=== PATIENT | female | born 1940 | race Caucasian/White ===

== ENCOUNTER → 2021-05-23 | Outpatient (CLI) | payer MEDICARE ==
--- NOTE | 2021-05-28 15:50 | RAD ---
Bilateral digital screening mammograms: Reason for examination: Routine screening. Comparison is made to previous mammograms dated 04/18/2020 and 12/01/2017. Interpretation was made with the benefit of CAD. Findings: Breast density: Category B. There are scattered areas of fibroglandular density.. There are no dominant masses, suspicious calcifications or architectural distortions. There is a smal l group of punctate calcifications 1:00 position of the right breast about 9 cm from the nipple which has not changed since 2018. Impression: No evidence of malignancy. . Assessment: BI-RADS Category 2. Benign findings. This patient's information has been entered into a reminder system for the patient to be notified wit h the results of her examination and a target date for the next mammogram. Electronically signed by: Destinee Ely MD (05/28/2021 3:48 PM) [id number]
== END ==
LOC: MAMMO 10:25
PROVIDERS: ATTEND Family Medicine
DX: Z12.31 Encounter for screening mammogram for malignant neoplasm of breast (principal); R92.1 Mammographic calcification found on diagnostic imaging of breast
CPT/HCPCS: 77067

== ENCOUNTER → 2021-07-10 | Outpatient (CLI) | payer MEDICARE ==
--- NOTE | 2021-07-10 12:24 | RAD ---
EXAM: AP pelvis, AP and lateral views of both hips DATE: 07/10/2021 9:23 AM INDICATION: Reason: BILATERAL HIP PAIN / Spl. Instructions: / History: . COMPARISON: No Prior FINDINGS: Mild bilateral hip joint space narrowing. Decreased bone mineral density. No acute fracture or disloc ation. Degenerative changes of lower lumbar spine. IMPRESSION: 1. No acute fracture or dislocation. 2. 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 Electronically signed by: Flo Nunez MD (07/10/2021 12:22 PM) [id number]
== END ==
LOC: RAD 09:18
PROVIDERS: ATTEND Orthopaedic Surgery
DX: M16.0 Bilateral primary osteoarthritis of hip (principal); M25.851 Other specified joint disorders, right hip; M25.852 Other specified joint disorders, left hip; M85.88 Other specified disorders of bone density and structure, other site; M47.816 Spondylosis without myelopathy or radiculopathy, lumbar region
CPT/HCPCS: 73521

== ENCOUNTER 2021-09-08 08:05 | Emergency (ER) | payer MEDICARE ==
[~2021-09-08] VITALS: Ht 165.1 cm; Wt 83.9 kg
--- NOTE | 2021-09-08 08:30 | PHYS DOC ---
General Adult EDM: Chief Complaint: MECHANICAL FALL HPI: HPI: 81-year-old female presents with left foot pain. The patient fell yesterday when she was walking around the bed. She has a left knee replacement. She states that when she came around the corner her left knee gave out and she fell to the ground. She landed on her left foot and ankle. She was able to get back up and get into her chair. This morning she noticed it was swollen and bruised and thought she should come in to make sure was not broken. She denies any other injuries or complaints at this time. Review of Systems: Review of Systems: Constitutional: Denies fever or chills Eyes: Denies change in visual acuity HENT: Denies nasal congestion or sore throat Respiratory: Denies cough or shortness of breath Cardiovascular: Denies chest pain or edema GI: Denies abdominal pain, nausea, vomiting, bloody stools or diarrhea : Denies dysuria Musculoskeletal: Left foot and ankle pain Integument: Denies rash Neurologic: Denies headache, focal weakness or sensory changes Endocrine: Denies polyuria or polydipsia Lymphatic: Denies swollen glands Psychiatric: Denies depression or anxiety Allergies: Allergies: Allergies Coded Allergies Type Severity Reaction Last Updated Verified No Known Drug Allergies 09/08/21 No Physical Exam: PE: Constitutional: Well developed, well nourished, no acute distress, non-toxic appearance. [] HENT: Normocephalic, atraumatic, bilateral external ears normal, oropharynx moist, no oral exudates, nose normal. [] Eyes: PERRLA, EOMI, conjunctiva normal, no discharge. [] Neck: Normal range of motion, no tenderness, supple, no stridor. [] Cardiovascular:Heart rate regular rhythm, no murmur [] Lungs & Thorax: Bilateral breath sounds clear to auscultation [] Abdomen: Bowel sounds normal, soft, no tenderness, no masses, no pulsatile masses. [] Skin: Warm, dry, no erythema, no rash. [] Back: No tenderness, no CVA tenderness. [] Extremities: Left lateral foot and ankle tender, ecchymosis, swollen. [] Neurologic: Alert and oriented X 3, normal motor function, normal sensory function, no focal deficits noted. [] Psychologic: Affect normal, judgement normal, mood normal. [] EKG: EKG: [] Radiology/Procedures: Radiology/Procedures: [] Impressions: EXAM: XR EXAM OF ANKLE_LEFT 3V, XR FOOT_LEFT 3 VIEWS 09/08/2021 8:33 AM CLINICAL INDICATION: Fall, swelling COMPARISON: None TECHNIQUE: 3 views of the left ankle and 3 views of the left foot. FINDINGS: Left foot: There is an acute, minimally displaced oblique fracture of the fifth metatarsal shaft. Alignment is normal. Joint spaces are maintained. No focal soft tissue abnormality. Left ankle: No acute fracture or malalignment in the ankle. The ankle mortise is symmetric and talar dome is intact. The fifth metatarsal fracture is redemonstrated. Soft tissues normal. IMPRESSION: 1. Acute minimally displaced fifth metatarsal shaft fracture. 2. No acute osseous abnormality of the left ankle. Electronically signed by: Rosi Curran MD (09/08/2021 8:53 AM) [id number] DICTATED AND SIGNED BY: ROSI CURRAN MD DATE: 09/08/21 0851 CC: MAXINE MALDONADO DO; BERTRAM PETER MD ~MTH0 0 Heart Score: C/O Chest Pain: N/A Risk Factors: Risk Factors: DM, Current or recent (<one month) smoker, HTN, HLP, family history of CAD, obesity. Risk Scores: Score 0 - 3: 2.5% MACE over next 6 weeks - Discharge Home Score 4 - 6: 20.3% MACE over next 6 weeks - Admit for Clinical Observation Score 7 - 10: 72.7% MACE over next 6 weeks - Early Invasive Strategies Course & Med Decision Making: Course & Med Decision Making Pertinent Labs and Imaging studies reviewed. (See chart for details) The patient does have 1/5 metatarsal shaft fracture. We will place her in a splint and have her follow-up with orthopedics. She is stable for discharge at this time. [] Dragon Disclaimer: Anuj Disclaimer: This electronic medical record was generated, in whole or in part, using a voice recognition dictation system. Departure Departure: Impression: Primary Impression: Fracture of fifth metatarsal bone of left foot Qualified Codes: S92.352A - Displaced fracture of fifth metatarsal bone, left foot, initial encounter for closed fracture Disposition: HOME / SELF CARE / HOMELESS Condition: STABLE Referrals: BERTRAM PETER MD (PCP) Patient Instructions: Metatarsal Fracture with [facility] Additional Instructions: You need to make an appointment with an orthopedic doctor for treatment of your foot fracture. You can use any orthopedic surgeon that he would like. You can also call the [facility] orthopedic group at: [phone]. MAXINE MALDONADO DO Sep 08, 2021 08:30
--- NOTE | 2021-09-08 08:55 | RAD ---
EXAM: XR EXAM OF ANKLE_LEFT 3V, XR FOOT_LEFT 3 VIEWS 09/08/2021 8:33 AM CLINICAL INDICATION: Fall, swelling COMPARISON: None TECHNIQUE: 3 views of the left ankle and 3 views of the left foot. FINDINGS: Left foot: There is an acute, minimally displaced oblique fracture of the fifth metatarsal shaft. Ali gnment is normal. Joint spaces are maintained. No focal soft tissue abnormality. Left ankle: No acute fracture or malalignment in the ankle. The ankle mortise is symmetric and talar dome is intact. The fifth metatarsal fracture is redemonstrated. Soft tissues normal. IMPRESSION: 1. Acute minimally displaced fifth metatarsal shaft fracture. 2. No acute osseous abnormality of the left ankle. Electronically signed by: Rosi Curran MD (09/08/2021 8:53 AM) [id number]
[2021-09-08 09:30] VITALS: BP 150/83
== END 2021-09-08 09:30 | disposition home or self-care (01) ==
LOC: ER 08:05
DX: S92.352A Displaced fracture of fifth metatarsal bone, left foot, initial encounter for closed fracture (principal); W18.39XA Other fall on same level, initial encounter; Y93.89 Activity, other specified; Y92.89 Other specified places as the place of occurrence of the external cause; Y99.8 Other external cause status
CPT/HCPCS: 73610; 73630; 99283

== ENCOUNTER → 2021-10-09 | Outpatient (CLI) | payer MEDICARE ==
--- NOTE | 2021-10-09 15:56 | RAD ---
Exam: XR FOOT_LEFT 3 VIEWS History: Left foot fracture Comparison: 09/08/2021 Findings: Decreased osseous mineralization. Oblique fracture of the fifth metatarsal with approximately 3 mm di splacement demonstrates resorption along the fracture line is early callus formation. No new fracture is identified. Soft tissues are unremarkable. Impression: 1. Remodeling and early callus formation and mildly displaced oblique left fifth metatarsal fracture . Electronically signed by: Sergey Morris MD (10/09/2021 3:53 PM) [id number]
== END ==
LOC: RAD 11:52
PROVIDERS: ATTEND Orthopaedic Surgery
DX: S92.352A Displaced fracture of fifth metatarsal bone, left foot, initial encounter for closed fracture (principal); X58.XXXA Exposure to other specified factors, initial encounter; Y93.89 Activity, other specified; Y92.89 Other specified places as the place of occurrence of the external cause; Y99.8 Other external cause status
CPT/HCPCS: 73630